=== PATIENT | male | born 1965 | race Two or more races ===

== ENCOUNTER 2025-08-18 07:18 | Emergency (ER) | payer MEDICAID, SELFPAY ==
[2025-08-18 07:19] VITALS: BMI 31.6
[2025-08-18 07:37] VITALS: BP 156/90; PULSE 68; RESP 17; TEMP 36.7; O2SAT 99
--- NOTE | 2025-08-18 07:50 | EDNOTE_ITS ---
<Statement entered by Reina Pan MD - 08/18/25 17:37> As co-signing physician, I was present and available for consult prn. I concur with the plan and care as documented by the midlevel provider. ED Ear RME/HPI General Chief complaint: Ear Stated complaint: R EAR RINGING X15 DAYS Time Seen by Provider: 08/18/25 07:21 Arrival date/time: 08/18/25 07:18 RME / HPI RME / HPI Narrative: 59-year-old healthy male presents to the ER complaining of right ear ringing which has been ongoing for the past 2 weeks and for the past 7 days its been worsening now feeling as if his ear is underwater. Denies any fever, nausea, vomiting, headache, vertigo, trauma. Related Data Previous Rx's ?Medication ?Instructions ?Recorded amoxicillin 875 mg-potassium 1 tab PO BID #20 tabs clavulanate 125 mg tablet methylprednisolone 4 mg tablets in 4 mg PO Q OTHER DAY #21 tabs 08/18/25 a dose pack (Medrol (Isaac)) Allergies Allergy/AdvReac Type Severity Reaction Status Date / Time NKA* Allergy Uncoded 08/18/25 07:25 Review of Systems Review of Systems Systems Reviewed: All systems reviewed, normal except as documented ED Exam Narrative Physical exam: Constitutional: Patient alert and oriented. Well appearing. No acute distress. Not toxic appearing. Head: Normocephalic, atraumatic. Eyes: Periorbital regions bilaterally normal to inspection. Conjunctiva clear bilaterally. Sclera anicteric bilaterally. Pupils equal, round, reactive to light bilaterally. Extraocular movements intact bilaterally. Ears: External ears normal to inspection bilaterally. No mastoid tenderness bilaterally. EAC without edema or exudate bilaterally. Right TM retracted with a serous effusion and mild injection. Left TM pearly buckley. Mouth/Throat: Mucous membranes moist. No stridor or muffled voice. Uvula midline. Rise and fall of soft palate normal. No tonsillar edema or exudate. No peritonsillar fullness. No trismus. Handling secretions without difficulty. Airway widely patent. Neck: Supple. Trachea midline. No JVD. No nuchal rigidity. No midline tenderness or step-offs. Normal range of motion. Respiratory: Normal effort. No accessory muscle use or respiratory distress. Lungs clear to auscultation bilaterally without rhonchi, wheezes, or crackles. Cardiovascular: RRR. Normal S1/S2. No murmurs or rubs. Radial pulses intact bilaterally. Back: No midline tenderness or step-offs. No CVA tenderness to palpation bilaterally. Upper Extremities: No gross deformities. Lower Extremities: No gross deformities. No edema. Neuro: Speech normal. No gross motor or sensory deficits to upper or lower extremities bilaterally. GCS 15. CN II?XII grossly intact. Skin: Warm, dry, normal color. Psych: Normal affect. Cooperative. Normal insight. 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 Vitals are normal, pain is controlled, and the patient is tolerating oral intake without nausea or vomiting. The patient is agreeable to discharge and verbalizes understanding of the diagnosis, studies, treatment plan, medications (including side effects/precautions), and strict ER return precautions as discussed in the ED. All concerns were addressed, and the patient is comfortable with the plan. Patient data External records reviewed:: [facility] previous records Clinical information provided by:: patient Social determinants that could affect healthcare access:: none Patient has the following chronic illnesses:: Social alcohol use How is presenting disease/condition affected by chronic disease/condition?: uneffected by Evaluation data The following diagnostics were reviewed and interpreted by me:: other (specify) Lab and/or radiology exams considered but not ordered:: Additional Labs and radiology considered, but not ordered as they were not clinically indicated at this time. Interpretation Summary: As noted Medications / Prescriptions Medications or Prescriptions considered but not ordered:: I ordered medications based on the patient?s clinical needs and assessment, as documented in the chart. For medications not prescribed, they were not indicated for the patient's current condition, and I determined they were unnecessary at this time to avoid potential risks or complications. Medication administrations:: As noted Consultations Consultation(s) initiated? (list below): No Diagnosis Most likely diagnosis given after review of the tests above:: As noted Admission Indicated Admission indicated?: not indicated Explain why admission is indicated or not indicated:: Escalation of care including admission/observation considered but I decided to discharge because based on the overall clinical presentation, and after consideration of the patient's course in the emergency department and plan for outpatient management, I believe that neither further observation nor inpatient care is required at this time. Admission Request Was there a request for admission?: No Disposition Plan Disposition Plan: Discharge Discharge Attestation Discharge Attestation: The patient and all family members were given an opportunity to ask questions and understood the discharge instructions. Discharge instructions specifically effects, indications for sooner follow up or return to the emergency department, and the expected course of current diagnosis. Patient condition: Stable Discharge Plan Plan Patient Disposition: HOME (Self Care) Patient condition on transfer: Stable Prescriptions/Referrals Prescriptions/Med Rec: New amoxicillin-pot clavulanate 875-125 mg tablet 1 tab PO BID Qty: 20 0RF methylprednisolone [Medrol (Isaac)] 4 mg tablets,dose pack 4 mg PO Q OTHER DAY Qty: 21 0RF Problem List Clinical Impression: Otitis media, Tinnitus Patient/Caregiver Discharge Instructions Education Materials: Tinnitus (Ringing in the Ears), ED Otitis Media Antibiotic ... Additional Instructions: Follow up with your primary medical doctor and an ENT doctor within 48 hours. Return to the Emergency Room immediately for any new, worsening, continuing symptoms or any concerns at all. Return to the Emergency Room within 48 hours if you are unable to follow up with your primary medical doctor and an ENT doctor within 48 hours. Print Language: Hungarian Stand Alone Forms: Laly Award Info., Patient Portal Info Letter ALEAH/CHARU Supervising Physician ALEAH/CHARU Supervising Physician: Dr. Pan
== END 2025-08-18 08:05 | disposition home or self-care (01) ==
LOC: SERX 08:12
PROVIDERS: Emergency Provider Emergency Medicine
DX: H66.91 Otitis media, unspecified, right ear (principal); H93.13 Tinnitus, bilateral
CPT/HCPCS: 99281